=== PATIENT | female | born 1975 | race African-American/Black ===

== ENCOUNTER 2019-03-10 17:12 | Emergency (ER) | payer OTHER ==
[~2019-03-10] VITALS: Ht 175.3 cm; Wt 69.3 kg
[2019-03-10 18:00] LABS: BASOPHILS % 0.5 % (0.0-2.0); EOSINOPHILS % 4.3 % (0.0-5.0); HEMATOCRIT. 32.2 % (36.0-48.0); HEMOGLOBIN. 10.6 g/dL (12.0-16.0); LYMPHOCYTES % 39.5 % (20.0-50.0); MEAN CORPUSCULAR HEMOGLOBIN 24.1 pg (28.0-32.0); MEAN PLATELET VOLUME 10.1 fl (7.4-10.4); MONOCYTES % 6.1 % (2.0-8.0); NEUTROPHILS % 49.6 % (40.0-76.0); PLATELET 183 x1000/uL (130-400); RED BLOOD CELL COUNT 4.41 mill/uL (4.2-5.4)
[2019-03-10 18:05] LABS: CHLORIDE 106 mEq/L (98-107)
[2019-03-10 18:06] LABS: INR 1.2; PROTHROMBIN TIME 12.1 sec (9.6-11.0)
[2019-03-10 18:09] LABS: ETHANOL BLOOD < 10 mg/dL
[2019-03-10 20:41] LABS: PLATELET ESTIMATE NORMAL
[2019-03-11 01:13] VITALS: BP 129/79
== END 2019-03-11 01:12 | disposition short-term general hospital (02) ==
LOC: ER 17:12 → CANBEDREQ 03-11 01:51
DX: G43.409 Hemiplegic migraine, not intractable, without status migrainosus (principal); I63.9 Cerebral infarction, unspecified; Z90.710 Acquired absence of both cervix and uterus
CPT/HCPCS: 36415; 71045; 80320; 82962; 84484; 93005; 99285; G0480